=== PATIENT | male | born 1965 | race Caucasian/White ===

== ENCOUNTER 2019-07-19 11:35 | Emergency (ER) | payer MEDICAID, OTHER ==
--- NOTE | 2019-07-19 11:57 | ED Physician Documentation ---
Sore Throat/Dental Pain - HISTORIAN Historian: patient - HPI Stated Complaint: sore throat Chief Complaint: Sore Throat Additional Information: Patient presents to ED with a 3 day history of sore throat. He denies nasal congestion, cough, fever. Patient reports his had strep throat a couple of weeks ago. Onset: days ago (3) Associated Symptoms: sore throat, moderate. denies: fever Further Comments: no - ROS CONST: no problems CVS/RESP: denies: shortness of breath GI/: denies: nausea MS/SKIN/LYMPH: denies: muscle aches NEURO/PSYCH: denies: headache - PAST HX Past History: none Other History: other (HTN, thyroid) Allergies/Adverse Reactions: Allergies Allergy/AdvReac Type Severity Reaction Status Date / Time No Known Drug Allergies Allergy Verified 07/19/19 11:55 Home Medications: Ambulatory Orders Medication Instructions Recorded Amoxicillin/Potassium Clav 1 each PO Q12 #14 tablet 07/19/19 [Augmentin 875Mg/125Mg] - SOCIAL HX Smoking History: non-smoker Alcohol Use: none Drug Use: none - FAMILY HX Family History: No - VITAL SIGNS Vital Signs: Vital Signs Temp Pulse Resp BP Pulse Ox 162/85 04/27/19 23:41 - REVIEWED ASSESSMENTS Nursing Assessment Reviewed: Yes Vitals Reviewed: Yes ED Results Lab/Radiology - Lab Results Lab Results: rapid strep - Positive. - Orders Orders: ED Orders Category Date Time Status Rapid Strep [GRP A STREP SCREEN] Stat Lab 07/19/19 Ordered Sore throat Physical Exam - EXAM General Appearance: no acute distress, alert Head/Neck: trachea midline. No: cervical lymphadenopathy Eyes: PERRL Mouth/Throat: lips nml, pharyngeal erythema Ear/Nose: nml inspection Respiratory: no resp. distress, breath sounds nml Abdomen: soft, normal bowel sounds Extremities: non-tender Skin: warm/dry Neuro/Psych: oriented x3, mood/affect nml Discharge Clincal Impression: Strep pharyngitis Prescriptions: Amoxicillin/Potassium Clav [Augmentin 875Mg/125Mg] 1 each PO Q12 #14 tablet Referrals: Jojo Parker MD [Primary Care Provider] - 2 Days Additional Instructions: 1. Take antibiotic until gone 2. Tylenol and/or Ibuprofen as needed for pain/fever 3. Salt water gargles as needed for throat pain 4. Drink plenty of fluids to maintain proper hydration 5. Follow up with PCP within 1 week 6. Return to ER for new or worsening symptoms Condition: Stable Disposition: 01 HOME, SELF-CARE Decision to Admit: NO Date of Decison to Admit: 07/19/19 Decision Time: 12:05
[2019-07-19 12:02] VITALS: BP 160/71
== END 2019-07-19 12:13 | disposition home or self-care (01) ==
LOC: ED 11:35
DX: J02.0 Streptococcal pharyngitis (principal)
CPT/HCPCS: 87880; 99283; 99284